=== PATIENT | female | born 1950 | race Caucasian/White ===

== ENCOUNTER → 2018-03-06 | Outpatient (CLI) | payer MEDICARE, OTHER ==
[~2018-03-06] MED LIST: FURO-45 PO; GLIP-152 PO; LEVO75TA73 PO; LISI-355 PO; POTA10CA40 PO; PRED-1 PO; REGADENOSON 0.4 MG/5 ML SYR ONE; TRAM-420 PO
--- NOTE | 2018-03-06 16:28 | RADIOLOGY IMAGING REPORT ---
FACILITY: [facility] [place] PATIENT NAME: Lalitha Augustine : 1950 MR: [id number] V: [id number] EXAM DATE: ORDERING PHYSICIAN: HERMES DIAZ TECHNOLOGIST: [place] [facility] [place] Lalitha Augustine : 1950 Visit/Account:[id number] Date of Sevice: 03/06/2018 EXAMINATION: Single isotope SPECT imaging with regadenoson infusion and gated SPECT imaging. DATE OF EXAMINATION: March 06, 2018. DATE OF INTERPRETATION: March 06, 2018. REQUESTING PHYSICIAN: Hermes Diaz MD. INDICATION: The patient is a 67-year-old female evaluated for chest pain, near syncope, arrhythmia, type 2 diabetes. PROCEDURE: After informed consent the patient received an intravenous injection of 12.5 mCi of Tc-99 m sestamibi followed at an appropriate time interval by rest imaging. The patient then subsequently received an intravenous infusion of 0.4 mg of regadenoson per protocol without complication. Resting heart rate was 69 bpm with a peak heart rate of 108 bpm. Blood pressure at rest was 160 / 84 and fo llowing infusion was 160 / 76. Baseline EKG demonstrates sinus rhythm with left bundle branch block. There were no diagnostic EKG changes of ischemia following infusion. Symptoms were nonspecific. T he patient then received an intravenous injection of 29.6 mCi of Tc-99m sestamibi followed by stress imaging. RAW DATA: Examination of the summed raw data revealed a fair quality study. MYOCARDIAL PERFUSION: The tomographic images demonstrate normal perfusion rest and stress. No transi ent ischemic dilation post stress. GATED IMAGES: The gated images demonstrate normal regional wall motion and thickening, LVEF measured 43%. There is septal hypokinesis likely due to left bundle branch block. Subjectively LVEF is 45-50% . IMPRESSION: 1. Nondiagnostic Lexiscan stress ECG 2. Normal myocardial perfusion, no evidence for prior infarct or ischemia. 3. Mild abnormal LV systolic function; LVEF measures 43%, subjectively appears to be 45-50%. Septal hypokinesis present. 4. Based on the results of this exam, the patient appears to be at intermediate risk for future cardi ovascular events based on mild LV systolic dysfunction. 5. Consider rest echocardiogram to further assess LV systolic function. Report Dictated By: Julius Coy MD at 03/06/2018 4:18 PM Report E-Signed By: Julius Coy MD at 03/06/2018 4:24 PM WSN:[email or web address]
== END ==
LOC: NUC 01:19
PROVIDERS: ATTEND Family Medicine
DX: R07.2 Precordial pain (principal)
CPT/HCPCS: 78452; 93017; A9500; J2785

== ENCOUNTER → 2018-09-03 | Outpatient (CLI) | payer MEDICARE, OTHER ==
[~2018-09-03] MED LIST changes: -REGADENOSON 0.4 MG/5 ML SYR ONE
--- NOTE | 2018-09-03 13:28 | RADIOLOGY IMAGING REPORT ---
FACILITY: [facility] PATIENT NAME: Lalitha Augustine : 1950 MR: [id number] V: [id number] EXAM DATE: [id number] ORDERING PHYSICIAN: ТАТЬЯНА GENTILE TECHNOLOGIST: Location: [facility] - [place] Patient: Lalitha Augustine : 1950 Visit/Account:[id number] Date of Sevice: 09/03/2018 EXAMINATION: Head CT without intravenous contrast HISTORY: Fever, memory loss, confusion, no prior head trauma TECHNIQUE: Contiguous axial images were obtained from the skull base to the vertex without intraven ous contrast. Sagittal and coronal reformatted images are also submitted. Dose Lowering Technique One of the following dose optimization techniques was utilized in the performance of this exam: Autom ated exposure control; adjustment of the mA and/or kV according to the patient's size; or use of an i terative reconstruction technique. Specific details can be referenced in the facility's radiology C T exam operational policy. COMPARISON: None. FINDINGS: Brain volume: There is mild diffuse cortical atrophy Ventricles: Normal. Acute ischemic changes: None. Hemorrhage: None. Masses / edema: None. Sexton-white: There are areas of decreased attenuation in the basal ganglia bilaterally which may repre sent prominent perivascular spaces versus old lacunar infarcts White matter: Normal. Vessels: There are calcifications in the vertebral arteries bilaterally Extra-axial: Negative. Calvarium / scalp: Incidental note of hyperostosis frontalis interna Skull base / visualized face: Negative. Visualized sinuses / orbits: There are prominent delfino bullosa bilaterally IMPRESSION: Mild diffuse cortical atrophy Areas of decreased attenuation in the basal ganglia bilaterally which may represent prominent perivas cular spaces versus old lacunar infarcts Calcifications in the vertebral arteries bilaterally Report Dictated By: Esme Sanchez MD at 09/03/2018 1:17 PM Report E-Signed By: Esme Sanchez MD at 09/03/2018 1:24 PM WSN:[email or web address]
--- NOTE | 2018-09-03 13:29 | RADIOLOGY IMAGING REPORT ---
[place]AC[place] [facility] [place] NAME: Lalitha Augustine : 1950 MR: [id number] V: [id number] EXAM DATE: ORDERING PHYSICIAN: ТАТЬЯНА GENTILE TECHNOLOGIST: Location: [facility] Patient: Lalitha Augustine : 1950 Visit/Account:[id number] Date of Sevice: 09/03/2018 Exam type: CHEST PA AND LAT History: Two-week cough fever and memory loss Comparison: None. Findings: The lungs are free of acute effusions, infiltrates or edema. The cardiac silhouette is normal in siz e. The trachea is in midline. There are surgical clips the right upper quadrant abdomen. IMPRESSION: 1. No acute cardiopulmonary process is seen Report Dictated By: Esme Sanchez MD at 09/03/2018 1:24 PM Report E-Signed By: Esme Sanchez MD at 09/03/2018 1:24 PM WSN:[email or web address]
== END ==
LOC: CT 07:04
PROVIDERS: ATTEND Family Medicine
DX: I66.8 Occlusion and stenosis of other cerebral arteries (principal)
CPT/HCPCS: 70450; 71046

== ENCOUNTER → 2018-09-08 | Outpatient (CLI) | payer MEDICARE, OTHER ==
[~2018-09-08] MED LIST changes: +GADOBENATE 529MG/1ML 15ML VIAL IVP ONE
--- NOTE | 2018-09-08 16:59 | RADIOLOGY IMAGING REPORT ---
FACILITY: [facility] - [place] PATIENT NAME: Lalitha Augustine : 1950 MR: [id number] V: [id number] EXAM DATE: ORDERING PHYSICIAN: ТАТЬЯНА GENTILE TECHNOLOGIST: Location: [facility] - [place] Patient: Lalitha Augustine : 1950 Visit/Account:[id number] Date of Sevice: 09/08/2018 BRAIN W/O CONTRAST ADDITIONAL PERTINENT HISTORY: Confusion, abnormal CT, headache COMPARISON STUDIES: Head CT September 03, 2018 TECHNIQUE: Multi-planar, multi-sequence brain MRI was performed without IV contrast administration. FINDINGS: Ventricles / sulci / fissures: Age-appropriate Masses / hemorrhage / midline shift: Negative. Intra-axial: There are multifocal areas of increased T2 and FLAIR signal intensity seen in the periv entricular and subcortical white matter on the left with no evidence of restricted diffusion, hemorrh age or mass effect. Extra-axial fluid collections: Negative. Intracranial vasculature and dural sinuses: Negative. Skull base / calvarium: Incidental note of hyperostosis frontalis interna Visualized mastoid air cells / paranasal sinuses: Well aerated. Orbits: Negative. Scalp: Negative Upper neck:Negative. IMPRESSION: There are multifocal areas of increased T2 and FLAIR signal intensity in the periventricular and subc ortical white matter on the left with no evidence of restricted diffusion, hemorrhage or mass effect. These likely represent areas of chronic microvascular ischemic change Report Dictated By: Esme Sanchez MD at 09/08/2018 4:51 PM Report E-Signed By: Esme Sanchez MD at 09/08/2018 4:56 PM WSN:[email or web address]
== END ==
LOC: MRI 13:38
PROVIDERS: ATTEND Family Medicine
DX: I67.82 Cerebral ischemia (principal)
CPT/HCPCS: 70551; A9577

== ENCOUNTER → 2019-05-08 | Outpatient (CLI) | payer MEDICARE, OTHER ==
[~2019-05-08] MED LIST changes: -GADOBENATE 529MG/1ML 15ML VIAL IVP ONE
== END ==
LOC: US 01:44
PROVIDERS: ATTEND Family Medicine
DX: I45.9 Conduction disorder, unspecified (principal)
CPT/HCPCS: 93306